=== PATIENT | female | born 1975 | race Caucasian/White ===

== ENCOUNTER 2020-02-15 09:35 | Outpatient (NON) | payer OTHER, SELFPAY ==
[2020-02-15 16:30] LABS: SARS-CoV-2 RNA PCR Negative
== END 2020-02-15 09:36 ==
LOC: ANHCOVIDDT 09:36
PROVIDERS: PCP Family Medicine; Visit Provider Family Medicine
DX: R05 Cough (principal); J02.9 Acute pharyngitis, unspecified; Z20.828 Contact with and (suspected) exposure to other viral communicable diseases
CPT/HCPCS: 87635; C9803; U0003

== ENCOUNTER 2020-03-28 13:25 | Outpatient (CLI) | payer OTHER, SELFPAY ==
--- NOTE | ~2020-03-28 | MM_ITS ---
EXAMINATION: MM screening leon BI w [facility] HISTORY: Screening TECHNIQUE: Craniocaudal and mediolateral oblique 3-D tomosynthesis images were obtained and synthetic 2-D images were generated. CAD analysis was submitted and interpreted. COMPARISON: Comparison to multiple prior studies sequentially, with oldest reviewed study dated 11/08/2017. BREAST PARENCHYMAL COMPOSITION: The breasts are heterogeneously dense, which may obscure small masses . FINDINGS: There is no evidence of suspicious mass, calcification, or architectural distortion to sugg est malignancy in either breast. There has been no suspicious interval change. IMPRESSION: 1. No mammographic evidence of malignancy. 2. Recommend routine screening mammography in one year. BI-RADS Category 1: Negative Reviewed, dictated and finalized at [facility]. FOLIO MGR
== END 2020-03-28 13:26 | disposition home or self-care (01) ==
LOC: ANHIMG 13:32
PROVIDERS: PCP Family Medicine; Visit Provider Obstetrics & Gynecology
DX: Z12.31 Encounter for screening mammogram for malignant neoplasm of breast (principal)
CPT/HCPCS: 77063; 77067

== ENCOUNTER 2020-10-13 14:36 | Emergency (ER) | payer OTHER, SELFPAY ==
[2020-10-13 14:45] VITALS: BP 134/89; PULSE 73; RESP 20; TEMP 36.4; O2SAT 99
--- NOTE | 2020-10-13 16:55 | ED.WOUNDLAC ---
HPI - Wound/Laceration General Chief Complaint: Wound/Laceration Stated Complaint: wrist laceration Time Seen by Provider: 10/13/20 15:16 Source: patient Mode of arrival: ambulatory Limitations: no limitations History of Present Illness HPI narrative: Patient is a 45-year-old female who presents with a laceration to left wrist. 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 Bleeding controlled with dressing. Patient unsure on tetanus. Patient denies other injuries. Related Data Home Medications Medication Instructions Recorded Confirmed cholecalciferol (vitamin D3) 100 100 mcg PO DAILY 02/01/20 08/17/20 mcg (4,000 unit) capsule coenzyme Q10 10 mg capsule 10 mg PO ONCE 02/01/20 08/17/20 Allergies Allergy/AdvReac Type Severity Reaction Status Date / Time No Known Allergies Allergy Unknown Verified 08/17/20 16:25 Review of Systems Review of Systems: Narrative: CONSTITUTIONAL: Denies fever, chills, or sweats. EYES: Denies visual changes, redness, or discharge. ENT: Denies rhinorrhea, congestion, sore throat, or otalgia. CARDIOVASCULAR: Denies chest pain, palpitations, or edema. RESPIRATORY: Denies cough or dyspnea. GASTROINTESTINAL: Denies abdominal pain, nausea, vomiting, or diarrhea. GENITOURINARY: Denies dysuria or hematuria. SKIN: Laceration left wrist MUSCULOSKELETAL: Denies back pain, joint pain, or myalgia. NEUROLOGIC: Denies headache, numbness, dizziness, or weakness. PSYCHIATRIC: Denies anxiety or depression. [facility]LY [facility] Past Medical History Medical History Essential (primary) hypertension Generalized anxiety disorder Hypothyroid Migraine without aura and with status migrainosus, not intractable Other and unspecified hyperlipidemia Other hyperlipidemia Overweight Perimenopausal Prehypertension Surgical History Surgical History History of section x 3 [place] teeth removed Family History Family History Father Hypertension Grandparent Cerebrovascular accident Social History Social History (Updated 10/13/20 @ 16:58 by Maria Del Rosario M. Keen, HUMAN ANATOMY TEACHER) Smoking status: Never smoker Second hand tobacco smoke exposure: No Alcohol intake: current Alcohol use details: Occasional Substance use: never Living arrangements: with family Gender identity (if verbalized by the patient): Female Comments At the time of signature, I have reviewed and agree with nursing past medical, surgical, social, and family history unless otherwise noted. Please see nursing chart for further information. There is no relevant family history pertinent to the presenting complaint. Exam Narrative: Exam Narrative: GENERAL: Well-appearing, well-nourished, and in no acute distress. HEAD: Normocephalic, atraumatic. EYES: EOMI. No redness or drainage. Conjunctiva are normal. ENT: Mucous membranes pink and moist. CHEST: No respiratory distress. HEART: Regular rate and rhythm. EXTREMITIES: Normal range of motion. No edema. SKIN: Approximate 2 cm linear laceration to the left wrist. NEURO: No focal deficits. Alert and oriented x3. Gait steady. PSYCH: Normal affect. No signs of depression or anxiety. Course Vital Signs Vital signs: Vital Signs Temperature 36.4 C L 10/13/20 14:45 Pulse Rate 73 10/13/20 14:45 Respiratory Rate 20 10/13/20 14:45 Blood Pressure 134/89 10/13/20 14:45 Pulse Oximetry 99 10/13/20 14:45 Temperature 36.4 C L 10/13/20 14:45 Pulse Rate 73 10/13/20 14:45 Respiratory Rate 20 10/13/20 14:45 Blood Pressure 134/89 10/13/20 14:45 Pulse Oximetry 99 10/13/20 14:45 Reviewed-patient is informed that they may have pre-hypertension or hypertension based on a blood pressure reading. I recommend the patient call the primary care provider
[2020-10-13] MEDS: TETANUS,DIPHTHERIA,AC PERTUSSIS ADULT (0.5 ML) BOOSTRIX IM (17:10)
== END 2020-10-13 17:18 | disposition home or self-care (01) ==
PROVIDERS: Emergency Provider Nurse Practitioner; PCP Family Medicine
DX: S61.512A Laceration without foreign body of left wrist, initial encounter (principal); I10 Essential (primary) hypertension; E03.9 Hypothyroidism, unspecified; Z23 Encounter for immunization; W45.8XXA Other foreign body or object entering through skin, initial encounter
CPT/HCPCS: 12001; 90471; 90715; 99282

== ENCOUNTER 2021-02-27 12:26 | Outpatient (CLI) | payer OTHER, SELFPAY ==
--- NOTE | ~2021-02-27 | US_ITS ---
US breast BI complete DATE: 02/27/2021 14:23 Please refer to combined bilateral diagnostic and bilateral breast ultrasound report. BI-RADS Category 4: Suspicious abnormality; biopsy should be considered. Recommendation: Ultrasound-guided biopsy of right breast 10:00 complex mass Reviewed, dictated and finalized at [facility]. Reviewed, dictated and finalized at location [facility]. MATION SALES MANAGER
--- NOTE | ~2021-02-27 | MM_ITS ---
EXAMINATION: MM diagnostic leon BI w [facility] HISTORY: Right 2.5 cm breast mass TECHNIQUE: Bilateral full field and spot ML, MLO and craniocaudal 3-D tomosynthesis images were perfo rmed and synthetic 2-D images were generated. Bilateral rotated lateral cc views. CAD analysis was warren bmitted and interpreted. High resolution complete bilateral breast ultrasound including all 4 quadran ts and subareolar areas was performed. COMPARISON: None BREAST PARENCHYMAL COMPOSITION: The breasts are heterogeneously dense, which may obscure small masses . FINDINGS: MAMMOGRAPHIC FINDINGS: There are asymmetric irregular densities in the subareolar area and upper outer right breast suggesti ve of breast mass(es), corresponding to the area of clinical complaint. There are benign rounded calcifications in the anterior mid upper left breast. No malignant calcifica tion is evident. No skin thickening or retraction is detected. ULTRASOUND: Right breast: Simple cyst at 1:00 near nipple measures 8 x 18 mm. There is through transmission posterior enhanceme nt. Another simple cyst measuring 12.4 x 11.4 mm, with through transmission posterior enhancement is note d at 1:00 1 cm from nipple. At 7:00 3 cm from the nipple there is a 4.4 mm cyst. 9:00 1 cm from nipple: 28 x 12 x 27 mm simple cyst with through transmission and posterior enhancemen t 10:00 3 cm from nipple: Septated 17 x 28 mm cyst 10:00 4 cm from nipple: Irregular complex at least 2.2 cm mass with solid and cystic components. Ther e is prominent vascular color flow signal at some of the solid components of this mass. The lesion is suspicious. Ultrasound-guided biopsy is recommended. Left breast: 8:00 1 cm from nipple: 4.2 mm cyst 12:00 2 cm from nipple: There is some irregular hypoechogenicity associated with a scar prior benign biopsy a IMPRESSION: 1. At least 2.2 cm complex irregular mass of right breast at 10:00 4 cm from nipple; 2. Ultrasound-guided biopsy of right breast 10:00 lesion is recommended. BI-RADS category 4, suspicious findings. Dr. Myers telephoned the report and ultrasound guided biopsy recommendation for right breast 10:00 les ion on 02/27/20[address] Elise's Data Control Clerk Kavita Reviewed, dictated and finalized at location [facility]. R PLANTATION MANAGER IMPRESSION: 1. At least 2.2 cm complex irregular mass of right breast at 10:00 4 cm from ni pple; 2. Ultrasound-guided biopsy of right breast 10:00 lesion is recommended. BI-RADS category 4, suspicious findings. Dr. Myers telephoned the report and ultrasound guided biopsy recommendation for right breast 10:00 lesion on 02/27/20[address] Elise's [facility] [place]
== END 2021-02-27 12:27 | disposition home or self-care (01) ==
LOC: ANHIMG 12:27
PROVIDERS: PCP Family Medicine; Visit Provider Obstetrics & Gynecology
DX: N63.11 Unspecified lump in the right breast, upper outer quadrant (principal); R92.8 Other abnormal and inconclusive findings on diagnostic imaging of breast
CPT/HCPCS: 76641; 77062; 77066; G0279